=== PATIENT | female | born 1970 | race African-American/Black ===

== ENCOUNTER 2019-05-22 14:04 | Emergency (ER) | payer OTHER ==
[2019-05-22 14:27] VITALS: BP 135/85; PULSE 77; RESP 16; TEMP 98.3
--- NOTE | 2019-05-22 15:14 | ED ---
Skin/Abscess/FB HPI - General Chief complaint: Skin/Abscess/Foreign Body Stated complaint: lightheaded Time Seen by Provider: 05/22/19 14:28 Source: patient, RN notes reviewed, old records reviewed Mode of arrival: ambulatory Limitations: no limitations - History of Present Illness Initial comments: This patient's a 48-year-old female who presents emergency department today for evaluation for discharge from her right breast. She reports it's been of dark brown bloody tinged discharge. Patient states also felt palpable mass within her breast. Patient states that she's noticed since the past few days. Patient states that she had a mammogram last year she had no severe changes. Patient states that she is scheduled in one or soon. Patient reports no other significant symptoms at this time. - Related Data Home Medications Medication Instructions Recorded Confirmed Escitalopram [Lexapro] 20 mg PO DAILY 04/13/14 08/21/15 Gabapentin 100 mg PO BID 04/13/14 08/21/15 oxyCODONE-APAP 7.5-325MG [Percocet 1 tab PO BID 04/13/14 08/21/15 7.5-325 mg] DULoxetine HCL [Cymbalta] 60 mg PO DAILY 08/21/15 08/21/15 Propranolol [Inderal] 20 mg PO BID 08/21/15 08/21/15 Previous Rx's Medication Instructions Recorded Albuterol Sulfate [Proair Hfa] 1 - 2 puff INHALATION Q6HR PRN #1 08/21/15 inhaler Amoxic-Pot Clav 875-125Mg 1 each PO Q12HR #20 tablet 08/21/15 [Augmentin Xr 875-125] guaiFENesin-DM 600/30MG [Mucinex 1 each PO Q12HR PRN #20 tab.er.12h 08/21/15 Dm] Allergies Allergy/AdvReac Type Severity Reaction Status Date / Time No Known Allergies Allergy Verified 05/22/19 14:27 Review of Systems ROS Statement: Those systems with pertinent positive or pertinent negative responses have been documented in the HPI. ROS Other: All systems not noted in ROS Statement are negative. Past Medical History Past Medical History: Neurologic Disorder History of Any Multi-Drug Resistant Organisms: None Reported Past Surgical History: Cholecystectomy, Hernia Repair, Hysterectomy, Tubal Ligation Additional Past Surgical History / Comment(s): carpal tunnel, brain, shoulder Past Psychological History: Anxiety, Depression Smoking Status: Never smoker Past Alcohol Use History: Occasional Past Drug Use History: None Reported General Exam - General Exam Comments Initial Comments: 40-year-old female. Alert and oriented. No distress. Limitations: no limitations General appearance: alert, in no apparent distress Head exam: Present: atraumatic, normocephalic, normal inspection Eye exam: Present: normal appearance, PERRL, EOMI. Absent: scleral icterus, conjunctival injection, periorbital swelling ENT exam: Present: normal exam, mucous membranes moist Neck exam: Present: normal inspection. Absent: tenderness, meningismus, lymphadenopathy Respiratory exam: Present: normal lung sounds bilaterally. Absent: respiratory distress, wheezes, rales, rhonchi, stridor Cardiovascular Exam: Present: regular rate, normal rhythm, normal heart sounds, other (Patient is a mobile 2 cm circular-like mass over the 2 o'clock position of the left breast. Patient with the Patient has some bloody discharge from her nipple.). Absent: systolic murmur, diastolic murmur, rubs, gallop, clicks GI/Abdominal exam: Present: soft, normal bowel sounds. Absent: distended, tenderness, guarding, rebound, rigid Extremities exam: Present: normal inspection Back exam: Present: normal inspection Neurological exam: Present: alert, oriented X3, CN II-XII intact Course Vital Signs 05/22/19 14:25 Temperature 98.3 F Pulse Rate 77 Respiratory 16 Rate Blood Pressure 135/85 O2 Sat by Pulse 96 Oximetry Medical Decision Making - Medical Decision Making Patient's a 40-year-old female presents today with concerns for a mobile mass over her left breast and some bloody discharge. On exam she does have a 2 cm mobile mass at the 2 o'clock position. Patient has been advised that she needs to follow-up promptly with her [employer] her breast surgeon. I discussed St. biopsied. Patient's breast does have some discharge and appears dark brown or possibly blood tinged on palpation. I discussed that if this were to get worse or have any other signs of infection including redness swelling to return for reevaluation. Discussed from PCP and breast surgeon follow-up. Disposition Clinical Impression: Discharge from breast Disposition: HOME SELF-CARE Condition: Good Instructions (If sedation given, give patient instructions): Cyst (ED) Additional Instructions: Patient is a prompt follow-up with breast surgeon and primary care physician. she needs to schedule for mammography or ultrasound. Is patient prescribed a controlled substance at d/c from ED?: No Referrals: Mark Juarez MD [Primary Care Provider] - 1-2 days Eboni Flores MD [STAFF PHYSICIAN] - 1-2 days Time of Disposition: 15:14
== END 2019-05-22 15:31 | disposition home or self-care (01) ==
LOC: EC 14:04
DX: N64.52 Nipple discharge (principal); R42 Dizziness and giddiness; F41.9 Anxiety disorder, unspecified; F32.9 Major depressive disorder, single episode, unspecified; Z79.891 Long term (current) use of opiate analgesic; Z79.899 Other long term (current) drug therapy
CPT/HCPCS: 87070; 87205; 99284

== ENCOUNTER → 2019-05-28 | Outpatient (CLI) | payer OTHER ==
[2019-05-28 14:40] LABS: Basophils % (A) 0 %; Eosinophils # (A) 0.3 k/uL (0-0.7); Eosinophils % (A) 4 %; HCT 42.3 % (34.0-46.0); HGB 13.1 gm/dL (11.4-16.0); Lymphocytes # (A) 1.9 k/uL (1.0-4.8); Lymphocytes % (A) 26 %; MCH 29.5 pg (25.0-35.0); MCHC 30.9 g/dL (31.0-37.0); MCV 95.5 fL (80.0-100.0); Mean Platelet Volume 7.3; Monocytes # (A) 0.5 k/uL (0-1.0); Monocytes % (A) 7 %; Neutrophils # (A) 4.5 k/uL (1.3-7.7); Neutrophils % (A) 61 %; Platelet Count 309 k/uL (150-450); RBC 4.43 m/uL (3.80-5.40); RDW 13.4 % (11.5-15.5); WBC 7.3 k/uL (3.8-10.6)
== END | disposition home or self-care (01) ==
LOC: LABWHC1 14:05
PROVIDERS: ATTEND Internal Medicine
DX: N64.52 Nipple discharge (principal)
CPT/HCPCS: 36415; 82670; 83001; 83002; 84146; 85025

== ENCOUNTER → 2019-06-24 | Outpatient (CLI) | payer OTHER ==
--- NOTE | 2019-06-25 09:26 | USB ---
Reason for exam: clinical finding. Indicated problem(s): non-bloody discharge in both breasts. Physical Findings: Nurse Summary: 1.5cm nodule in the right breast at 3 o'clock, a 1.5cm nodule in the left breast at 2 o'clock and a 1cm nodule in the left breast at 3 o'clock (nurse TM). US Breast BILAT Right complete breast ultrasound includes all four quadrants, the retroareolar region and axilla. Finding demonstrates a 0.3 x 0.2 x 0.3cm lesion too small to characterize at 1 o'clock and a 0.4 x 0.3 x 0.4cm mixed lesion at 11 o'clock, some posterior enhancement. Left complete breast ultrasound includes all four quadrants, the retroareolar region and axilla. Finding demonstrates a 0.9 x 0.5 x 0.7cm mixed lesion at 1 o'clock, suspicious, possible papilloma, biopsy recommended, a 0.9 x 0.3 x 0.9cm mixed lesion at 2 o'clock, intraductal filling defect, suspicious, biopsy recommended, possible papilloma also, a 0.5 x 0.3 x 0.6cm mixed lesion at 11 o'clock and ductal ectasia at the nipple. These results were verbally communicated with the patient and result sheet given to the patient on 06/24/19. ASSESSMENT: Suspicious, BI-RAD 4 RECOMMENDATION: Ultrasound core biopsy of the left breast. Called Dr. Juarze with mammographic findings and has scheduled an appointment for the patient for 07/16/19 at 12:[address] Flores. Biopsy scheduled for 07/19/19 at 12:20. PRELIMINARY REPORT CALLED AND FAXED TO DR. FLORES ON 06/24/19.
--- NOTE | 2019-07-06 09:01 | MM ---
Reason for exam: clinical finding. Last mammogram was performed 5 years and 7 months ago. Physical Findings: Nurse Summary: 1.5cm nodule in the right breast at 3 o'clock, a 1.0cm nodule in the left breast at 3 o'clock and a 1.5cm nodule in the left breast at 2 o'clock (nurse TM). MG 3D Diag Mammo W/Cad WING Bilateral CC, MLO, and ML view(s) were taken. Prior study comparison: November 22, 2013, mammogram, performed at [facility]. December 02, 2011, mammogram, performed at [facility]. November 08, 2008, right breast mammogram dig work up. October 18, 2008, bilateral digital screening mammogram. The breast tissue is heterogeneously dense. This may lower the sensitivity of mammography. Medial palpable marker on the right. Two lateral palpable markers on the left. Lateral right breast nodularity. Medial left breat nodularity. These results were verbally communicated with the patient on 07/05/19. ASSESSMENT: Incomplete: need additional imaging evaluation, BI-RAD 0 RECOMMENDATION: Ultrasound of both breasts.
== END | disposition home or self-care (01) ==
LOC: RADMAMWWP 12:56
PROVIDERS: ATTEND Internal Medicine
DX: N64.52 Nipple discharge (principal); N64.89 Other specified disorders of breast
CPT/HCPCS: 77066; 76641; G0279; 77062

== ENCOUNTER → 2019-07-16 | Outpatient (CLI) | payer OTHER ==
[2019-07-16 12:26] VITALS: BP 139/91; PULSE 71; RESP 18; TEMP 98.4; BMI 43.9
--- NOTE | 2019-07-16 12:52 | P.GSHP ---
History of Present Illness H&P Date: 07/16/19 Chief Complaint: breast pain, nodularity of the left breast, bloody nipple d ischarge The patient is a 48 year old black female who presents with a complaint of bilateral breast pain which is worse before she should be having her periods. She has had a hysterectomy her ovaries were not removed and so she is uncertain as to when her periods would actually be. The last time the patient experienced this pain she also noticed some nodularity in her left breast. The nodularity was in the upper outer quadrant area. It has remained persistent. Additionally she noticed some left nipple bloody discharge. No bloody discharge from the right side although she has had some nipple discharge on this side as well. The patient had a bilateral mammogram performed on 9518. This revealed heterogeneously dense tissue. A marker was present on the right breast. There is some palpable changes as well as a marker on the left breast for some palpable changes. Ultrasound of both breasts was recommended. Ultrasound was performed on 9518. Right breast ultrasound revealed a 0.4 cm Lesion at 11:00. The left breast ultrasound revealed a 0.9 cm mixed lesion at 1:00 suspicious possible papilloma, biopsy was recommended. Additionally 0.9 cm mixed lesion at 2:00 with an intraductal filling defect considered suspicious and biopsy recommended also possible papilloma. A 0.6 cm mixed lesion at 11:00 and duct ectasia at the nipple. The findings were considered suspicious and ultrasound- guided biopsy of 2 areas of the left breast recommended. She has not had any infection or trauma to the breast. The patient does get pain cyclically in her breast approximately once a month intubation. The pain is diffuse in the breast and the breast feel heavy. It does not radiate anyplace. The discomfort is described as diffuse tenderness. It is worse with touch. It gets better on its all after she believes she would've had her period. The patient does drink pop intermittently. She does not smoke cigarettes. She is exposed to secondhand smoke. She does eat chocolate regularly. Family history: maternal grandmother: throat cancer Hormonal history: Menarche:9 1 [place], first born at 14, breast fed:no menopause: hysterectomy at 32, fibroid tumors BCP: 5 years hormones: none Surgical history: 1. Hysterectomy 2. ventral hernia- after it was repaired and became infected and she needed to have a wound VAC at this site 3. Cholecystectomy 4. Rotator cuff right shoulder 5. Carpal tunnel right wrist 6. Budd-Chiari malformation/brain surgery Medical History: 1. Headaches/Budd-Chiari malformation 2. Numbness on the right side 3. Neck and shoulder pain Social history: Smoke: Negative Alcohol: Occasional Drugs: Marijuana every day for shoulder pain and to help sleep - Constitutional Constitutional: Denies chills, Denies fever - EENT Comment: blurred vision at times, Chiari malformation patient had surgery for this Ears: deny: decreased hearing, tinnitus Ears, nose, mouth and throat: Reports headache - Cardiovascular Cardiovascular: Reports high blood pressure, Reports shortness of breath, Denies chest pain - Respiratory Comment: bronchitis Respiratory: Reports cough - Gastrointestinal Gastrointestinal: Denies abdominal pain, Denies diarrhea, Denies nausea, Denies vomiting - Genitourinary (Female) Genitourinary: Denies dysuria, Denies hematuria - Menstruation Menstruation: Reports post hysterectomy - Musculoskeletal Comment: arthritis - Integumentary Integumentary: Denies pruritus, Denies rash - Neurological Neurological: Reports numbness, Reports weakness - Psychiatric Psychiatric: Denies anxiety, Denies depression - Endocrine Endocrine: Reports weight change, Denies fatigue - Hematologic/Lymphatic Comment: none - Allergic/Immunologic Allergic/Immunologic: Reports seasonal allergies Past Medical History Past Medical History: Hypertension, Neurologic Disorder Additional Past Medical History / Comment(s): migaines, History of Any Multi-Drug Resistant Organisms: None Reported Past Surgical History: Cholecystectomy, Hernia Repair, Hysterectomy, Tubal Ligation Additional Past Surgical History / Comment(s): Right carpal tunnel, brain, Right shoulder (torn rotator cuff) Past Anesthesia/Blood Transfusion Reactions: No Reported Reaction Past Psychological History: Anxiety, Depression Smoking Status: Former smoker Past Alcohol Use History: Rare Past Drug Use History: Marijuana Additional Drug Use History / Comment(s): daily marijuana smoker Medications and Allergies Home Medications Medication Instructions Recorded Confirmed Type Gabapentin 300 mg PO DAILY 04/13/14 07/07/19 History oxyCODONE-APAP 7.5-325MG [Percocet 1 tab PO BID 04/13/14 07/07/19 History 7.5-325 mg] Albuterol Sulfate [Proair Hfa] 1 - 2 puff INHALATION Q6HR PRN #1 08/21/15 07/07/19 Rx inhaler Propranolol [Inderal] 20 mg PO BID 08/21/15 07/07/19 History Furosemide [Lasix] 20 mg PO DAILY 07/16/19 07/16/19 History Oxybutynin Chloride [Ditropan] 5 mg PO BID 07/16/19 07/16/19 History buPROPion [Wellbutrin] 75 mg PO BID 07/16/19 07/16/19 History tiZANidine [Zanaflex] 4 mg PO Q8HR PRN 07/16/19 07/16/19 History Allergies Allergy/AdvReac Type Severity Reaction Status Date / Time No Known Allergies Allergy Verified 07/16/19 12:23 Surgical - Exam BMI 43.9 - General obese - Eyes normal ocular movement - ENT no hearing loss, no congestion - Neck no masses, trachea midline - Respiratory normal respiratory effort, clear to auscultation - Cardiovascular Rhythm: regular Heart Sounds: normal: S1, S2 - Abdomen Abdomen: soft - Integumentary normal turgor - Neurologic no disoriented, no combative - Musculoskeletal pain with ambulation in her knees - Psychiatric oriented to time, oriented to person, oriented to place, speech is normal, memory intact Breast examination: Right breast: Multiple positional exam fibrocystic changes no discrete dominant mass or nodule of concern Right axilla: No adenopathy of concern Left breast: Multiple position once an fibrocystic changes increased tenderness to palpation left breast upper outer quadrant area with fibrocystic changes and nodularity the patient has a left nipple discharge which is coming out from the upper outer quadrant of the nipple on the left at approximately 1:00 this was guaiac tested and noted to be guaiac positive Left axilla: No adenopathy of concern Results Mammogram and ultrasound results reviewed Assessment and Plan Assessment: Impression: 1. Mastodynia 2. Bloody nipple discharge on the left; most likely related to intraductal papilloma 3. Fibrocystic breast changes 4. Nodularity in the upper quadrant on the left most likely fibrocystic 5. Family history of cancer 6. Personal history of Budd-Chiari syndrome 7. Chronic headaches 8. Right-sided numbness and weakness Plan: 1. Ultrasound-guided core biopsy of 2 spots in the left breast 2. Duct exploration for bloody nipple discharge after ultrasound-guided core biopsy 3. Medical management of medical conditions 4. Follow-up after ultrasound-guided core biopsy I discussed with the patient that secondary to the bloody nipple discharge and recommended duct exploration. Depending on what is found at the ultrasound core biopsy made to determine the type of resection we would do. The first step will be an ultrasound core biopsy of 2 sites in the left breast. We talked about the possibility of this being an intraductal papilloma. Additionally I would recommend that the patient decrease her caffeine intake exposure to smoke and chocolate consumption. All of these things can contribute to fibrocystic changes and the pain the patient is been having in her breast. Otherwise the breast pain is most likely hormonally related and cyclical in nature secondary to the fact that she still has her ovaries. A book on the causes of breast pain is being given to the patient. CC: Dr. Juarez
== END ==
LOC: WWCWWP 12:06
PROVIDERS: ATTEND Surgery
DX: Z53.9 Procedure and treatment not carried out, unspecified reason (principal)

== ENCOUNTER → 2019-07-19 | Day surgery (SDC) | payer OTHER ==
[2019-07-19 11:18] VITALS: RESP 16
[2019-07-19 13:28] VITALS: BP 142/90; PULSE 69; TEMP 98.1
--- NOTE | 2019-07-19 15:16 | USB ---
EXAMINATION TYPE: US biopsy breast VAD LT, US biopsy breast add'l VAD LT, MG diagnostic mammo LT wo CAD DATE OF EXAM: 07/19/2019 CLINICAL HISTORY: R92.8 ABN MAMMO. TECHNIQUE: Ultrasound guided core biopsy of left breast. COMPARISON: Left breast ultrasound dated 06/24/2019 FINDINGS: The procedure of ultrasound guided core biopsy was explained to the patient. Benefits, alternatives, and risks were discussed. An informed consent was then obtained. Preprocedural timeout was performed. Site A (1:00): The patient was placed in supine positioning for imaging and for the procedure. The overlying skin was prepped and draped in usual sterile fashion. 10 cc of 1% lidocaine was used as anesthetic into the skin and subcutaneous tissue up to area of concern in the left breast. Under ultrasound guidance, a 12-gauge vacuum assisted biopsy gun device was used to obtain 4 core samples. Following this, a ribbon-shaped biopsy marker was left at the site of biopsy. Site B (2:00):The patient was placed in supine positioning for imaging and for the procedure. The overlying skin was prepped and draped in usual sterile fashion. 10 cc of 1% lidocaine was used as anesthetic into the skin and subcutaneous tissue up to area of concern in the left breast. Under ultrasound guidance, a 12-gauge vacuum assisted biopsy gun device was used to obtain 3 core samples. Following this, a coil-shaped biopsy marker was left at the site of biopsy. Postprocedure mammogram demonstrates appropriate biopsy marker placement. The patient tolerated the procedure well without any immediate complication. The patient was kept in the radiology department for short stay after the procedure and then discharged home in stable condition. IMPRESSION: Successful, uncomplicated two site ultrasound guided core biopsy of left breast masses at the 1:00 and 2:00 positions, full pathology results to follow. Of note there is an additional mass at the 2:00 position appearing intraductal, possibly papilloma that is similar in morphology to the biopsied mass at the 1:00 position. Recommendation for the additional 2:00 mass that was not biopsied will be made based on the biopsy results of the 1:00 mass in the left breast. This was discussed with the patient. Pathology Results: Benign A. LEFT BREAST, 1:00, ULTRASOUND GUIDED CORE BIOPSIES: Mammary duct ectasia and fibrocystic change with fragments of necrotic inspissated material. Negative for atypia. B. LEFT BREAST, 2:00, ULTRASOUND GUIDED CORE BIOPSIES: Fibrocystic change, mammary duct ectasia. Recommendation Surgical consult of the left breast. Repeat procedure. Possible excision versus rebiopsy at 1 o'clock. Sonographic features appear as a papilloma. 2:00 site is concordant and benign. MTDD
== END ==
LOC: RADUSWWP 10:57
PROVIDERS: ATTEND Surgery
DX: N60.12 Diffuse cystic mastopathy of left breast (principal); N60.42 Mammary duct ectasia of left breast
CPT/HCPCS: 88305; 77065; 19083; 19084; A4648; J2001

== ENCOUNTER → 2019-07-23 | Outpatient (CLI) | payer OTHER ==
[2019-07-23 16:06] VITALS: BP 139/92; PULSE 77; RESP 18; TEMP 97.9; BMI 43.5
--- NOTE | 2019-07-23 16:44 | P.PN ---
Subjective Progress Note Date: 07/23/19 The patient is a 48 year old black female who presents with a complaint of bilateral breast pain which is worse before she should be having her periods. She has had a hysterectomy her ovaries were not removed and so she is uncertain as to when her periods would actually be. The last time the patient experienced this pain she also noticed some nodularity in her left breast. The nodularity was in the upper outer quadrant area. It has remained persistent. Additionally she noticed some left nipple bloody discharge. No bloody discharge from the right side although she has had some nipple discharge on this side as well. The patient had a bilateral mammogram performed on 9518. This revealed het erogeneously dense tissue. A marker was present on the right breast. There is some palpable changes as well as a marker on the left breast for some palpable changes. Ultrasound of both breasts was recommended. Ultrasound was performed on 9518. Right breast ultrasound revealed a 0.4 cm Lesion at 11:00. The left breast ultrasound revealed a 0.9 cm mixed lesion at 1:00 suspicious possible pap illoma, biopsy was recommended. Additionally 0.9 cm mixed lesion at 2:00 with an intraductal filling defect considered suspicious and biopsy recommended also possible papilloma. A 0.6 cm mixed lesion at 11:00 and duct ectasia at the nipple. The findings were considered suspicious and ultrasound-guided biopsy of 2 areas of the left breast recommended. She has not had any infection or trauma to the breast. The patient does get pain cyclically in her breast approximately once a month intubation. The pain is diffuse in the breast and the breast feel heavy. It does not radiate anyplace. The discomfort is described as diffuse tenderness. It is worse with touch. It gets better on its all after she believes she would've had her period. The patient does drink pop intermittently. She does not smoke cigarettes. She is exposed to secondhand smoke. She does eat chocolate regularly. Matt underwent ultrasound-guided core biopsy of 2 areas of concern in the left breast and [id number]. She tolerated the biopsies with no difficulty. Both biopsy results were negative for atypia and revealed fibrocystic change. Her radiograph was reviewed with Dr. Simmons and it was felt that secondary to the fact that we were doing a duct exploration the both of these areas should be localized by ultrasound guidance and removed at the time of the duct exploration. External rotation is being done first bloody nipple discharge. Family history: maternal grandmother: throat cancer Hormonal history: Menarche:9 1 miscarrage, first born at 14, breast fed:no menopause: hysterectomy at 32, fibroid tumors BCP: 5 years hormones: none Surgical history: 1. Hysterectomy 2. ventral hernia- after it was repaired and became infected and she needed to have a wound VAC at this site 3. Cholecystectomy 4. Rotator cuff right shoulder 5. Carpal tunnel right wrist 6. Budd-Chiari malformation/brain surgery Medical History: 1. Headaches/Budd-Chiari malformation 2. Numbness on the right side 3. Neck and shoulder pain Social history: Smoke: Negative Alcohol: Occasional Drugs: Marijuana every day for shoulder pain and to help sleep - Constitutional Constitutional: Denies chills, Denies fever - EENT Comment: blurred vision at times, Chiari malformation patient had surgery for this Ears: deny: decreased hearing, tinnitus Ears, nose, mouth and throat: Reports headache - Cardiovascular Cardiovascular: Reports high blood pressure, Reports shortness of breath, Denies chest pain - Respiratory Comment: bronchitis Respiratory: Reports cough - Gastrointestinal Gastrointestinal: Denies abdominal pain, Denies diarrhea, Denies nausea, Denies vomiting - Genitourinary (Female) Genitourinary: Denies dysuria, Denies hematuria - Menstruation Menstruation: Reports post hysterectomy - Musculoskeletal Comment: arthritis - Integumentary Integumentary: Denies pruritus, Denies rash - Neurological Neurological: Reports numbness, Reports weakness - Psychiatric Psychiatric: Denies anxiety, Denies depression - Endocrine Endocrine: Reports weight change, Denies fatigue - Hematologic/Lymphatic Comment: none - Allergic/Immunologic Allergic/Immunologic: Reports seasonal allergies Past Medical History Past Medical History: Hypertension, Neurologic Disorder Additional Past Medical History / Comment(s): migaines, History of Any Multi-Drug Resistant Organisms: None Reported Past Surgical History: Cholecystectomy, Hernia Repair, Hysterectomy, Tubal Ligat ion Additional Past Surgical History / Comment(s): Right carpal tunnel, brain, Right shoulder (torn rotator cuff) Past Anesthesia/Blood Transfusion Reactions: No Reported Reaction Past Psychological History: Anxiety, Depression Smoking Status: Former smoker Past Alcohol Use History: Rare Past Drug Use History: Marijuana Additional Drug Use History / Comment(s): daily marijuana smoker Objective - Vital Signs Vital signs: Vital Signs Temp 97.9 F 07/23/19 16:02 Pulse 77 07/23/19 16:02 Resp 18 07/23/19 16:02 BP 139/92 07/23/19 16:02 Pulse Ox 97 07/23/19 16:02 Intake & Output 07/22/19 07/23/19 07/23/19 18:59 06:59 18:59 Weight 122.47 kg - Exam BMI 43.6 - Constitutional General appearance: Present: obese - EENT Eyes: Present: EOMI ENT: Present: hearing grossly normal - Neck Neck: Present: normal ROM - Respiratory Respiratory: bilateral: CTA - Cardiovascular Rhythm: regular Heart sounds: normal: S1, S2 - Gastrointestinal General gastrointestinal: Present: soft - Integumentary Integumentary: Present: normal turgor - Musculoskeletal Musculoskeletal: Present: gait normal - Psychiatric Psychiatric: Present: A&O x's 3, appropriate affect, intact judgment & insight - Additional findings Additional findings: Breasts: Biopsy site mild ecchymosis Patient with persistent 12:00 bloody nipple discharge Small hematoma at biopsy site Assessment and Plan Assessment: Impression: 1. Mastodynia somewhat improved 2. Bloody nipple discharge on the left 3. Fibrocystic breast changes 4. Status post core biopsy 2 sites of concern in the left breast both were benign 5. Nodularity upper quadrant on the left most likely fibrocystic 6. Personal history of Budd-Chiari syndrome 7. Chronic headaches 8. Right-sided numbness and weakness Plan: 1. Ultrasound-guided localization of 2 areas that were biopsied in the left breast with resection at time of duct exploration 2. Medical management of medical conditions 3. medical clearance form DR. Juarez 4. Patient is decreasing caffeine exposure as well as exposure to cigarette smoke. Risk and benefits of surgery are discussed with the patient she understands and wishes to proceed. risks include bleeding infection reaction to the anesthetic and possible failure to remove the area noted radiographically. CC: Dr. Juarez
== END | disposition home or self-care (01) ==
LOC: WWCWWP 15:49
PROVIDERS: ATTEND Surgery
DX: Z53.9 Procedure and treatment not carried out, unspecified reason (principal)

== ENCOUNTER → 2019-08-10 | Outpatient (CLI) | payer OTHER ==
[2019-08-10 15:26] LABS: Basophils # (A) 0.1 k/uL (0-0.2); Basophils % (A) 1 %; Eosinophils # (A) 0.3 k/uL (0-0.7); Eosinophils % (A) 3 %; HCT 40.2 % (34.0-46.0); Lymphocytes # (A) 2.3 k/uL (1.0-4.8); Lymphocytes % (A) 23 %; MCH 30.7 pg (25.0-35.0); MCHC 32.3 g/dL (31.0-37.0); MCV 95.3 fL (80.0-100.0); Mean Platelet Volume 6.6; Monocytes # (A) 0.7 k/uL (0-1.0); Monocytes % (A) 7 %; Neutrophils # (A) 6.5 k/uL (1.3-7.7); Neutrophils % (A) 65 %; Platelet Count 293 k/uL (150-450); RBC 4.22 m/uL (3.80-5.40); RDW 12.9 % (11.5-15.5)
[2019-08-10 15:37] LABS: ALT 22 U/L (9-52); AST 22 U/L (14-36); African American GFR (CKD) >90 (>60 ml/min/1.73 sqM); Albumin 3.9 g/dL (3.5-5.0); Alkaline Phosphatase 91 U/L (38-126); Anion Gap 5 mmol/L; Blood Urea Nitrogen 11 mg/dL (7-17); Calcium 9.3 mg/dL (8.4-10.2); Carbon Dioxide 30 mmol/L (22-30); Chloride 105 mmol/L (98-107); Glucose 87 mg/dL (74-99); Sodium 140 mmol/L (137-145); Total Bilirubin 1.4 mg/dL (0.2-1.3); Total Protein 7.4 g/dL (6.3-8.2)
[2019-08-10 15:47] LABS: INR 0.9 (<1.2)
[2019-08-10 15:54] LABS: T4, Free (Free Thyroxine) 0.98 ng/dL (0.78-2.19)
== END | disposition home or self-care (01) ==
LOC: LABPAT 14:22
PROVIDERS: ATTEND Internal Medicine
DX: Z01.812 Encounter for preprocedural laboratory examination (principal); Z01.818 Encounter for other preprocedural examination; R51 Headache; R94.31 Abnormal electrocardiogram [ECG] [EKG]
CPT/HCPCS: 80053; 84439; 84443; 84481; 85025; 85610; 93005

== ENCOUNTER → 2019-09-02 | Outpatient (CLI) | payer OTHER ==
[2019-09-02 15:58] VITALS: BP 128/93; PULSE 118; RESP 18; TEMP 98.4; BMI 43.5
--- NOTE | 2019-09-02 16:52 | P.PN ---
Subjective The patient is a 48 year old black female who presents with a complaint of bilateral breast pain which is worse before she should be having her periods. She has had a hysterectomy her ovaries were not removed and so she is uncertain as to when her periods would actually be. The last time the patient experienced this pain she also noticed some nodularity in her left breast. The nodularity was in the upper outer quadrant area. It has remained persistent. Additionally she noticed some left nipple bloody discharge. No bloody discharge from the right side although she has had some nipple discharge on this side as well. The patient had a bilateral mammogram performed on 9518. This revealed heterogeneously dense tissue. A marker was present on the right breast. There is some palpable changes as well as a marker on the left breast for some palpable changes. Ultrasound of both breasts was recommended. Ultrasound was performed on 9518. Right breast ultrasound revealed a 0.4 cm Lesion at 11:00. The left breast ultrasound revealed a 0.9 cm mixed lesion at 1:00 suspicious possible papilloma, biopsy was recommended. Additionally 0.9 cm mixed lesion at 2:00 with an intraductal filling defect considered suspicious and biopsy recommended also possible papilloma. A 0.6 cm mixed lesion at 11:00 and duct ectasia at the nipple. The findings were considered suspicious and ultrasound- guided biopsy of 2 areas of the left breast recommended. She has not had any infection or trauma to the breast. She underwent ultrasound-guided core biopsy of 2 sites in the left breast on . The first site at 1 oclock was felt to be discordant and needle local and excisional biopsy versus repeat ultrasound core biopsy was recommended. The second site at 2:00 is felt to be concordant and benign. The patient continues to have nipple discharge which was tested before and is guaiac positive. The patient states that the discomfort in her breast has improved. The patient does get pain cyclically in her breast approximately once a month . The pain is diffuse in the breast and the breast feel heavy. It does not radiate anyplace. The discomfort is described as diffuse tenderness. It is worse with touch. It gets better on its own after; she believes she would've had her period. The patient does drink pop intermittently. She does not smoke cigarettes. She is exposed to secondhand smoke. She does eat chocolate regularly. The patient has decreased her intake of pop. She continues to be exposed to secondhand smoke. She has decreased her chocolate intake. Family history: maternal grandmother: throat cancer Hormonal history: Menarche:9 1 miscarrage, first born at 14, breast fed:no menopause: hysterectomy at 32, fibroid tumors BCP: 5 years hormones: none Surgical history: 1. Hysterectomy 2. ventral hernia- after it was repaired and became infected and she needed to have a wound VAC at this site 3. Cholecystectomy 4. Rotator cuff right shoulder 5. Carpal tunnel right wrist 6. Budd-Chiari malformation/brain surgery Medical History: 1. Headaches/Budd-Chiari malformation 2. Numbness on the right side 3. Neck and shoulder pain Social history: Smoke: Negative Alcohol: Occasional Drugs: Marijuana every day for shoulder pain and to help sleep - Constitutional Constitutional: Denies chills, Denies fever - EENT Comment: blurred vision at times, Chiari malformation patient had surgery for this Ears: deny: decreased hearing, tinnitus Ears, nose, mouth and throat: Reports headache - Cardiovascular Cardiovascular: Reports high blood pressure, Reports shortness of breath, Denies chest pain - Respiratory Comment: bronchitis Respiratory: Reports cough - Gastrointestinal Gastrointestinal: Denies abdominal pain, Denies diarrhea, Denies nausea, Denies vomiting - Genitourinary (Female) Genitourinary: Denies dysuria, Denies hematuria - Menstruation Menstruation: Reports post hysterectomy - Musculoskeletal Comment: arthritis - Integumentary Integumentary: Denies pruritus, Denies rash - Neurological Neurological: Reports numbness, Reports weakness - Psychiatric Psychiatric: Denies anxiety, Denies depression - Endocrine Endocrine: Reports weight change, Denies fatigue - Hematologic/Lymphatic Comment: none - Allergic/Immunologic Allergic/Immunologic: Reports seasonal allergies Past Medical History Past Medical History: Hypertension, Neurologic Disorder Additional Past Medical History / Comment(s): migaines, History of Any Multi-Drug Resistant Organisms: None Reported Past Surgical History: Cholecystectomy, Hernia Repair, Hysterectomy, Tubal Ligation Additional Past Surgical History / Comment(s): Right carpal tunnel, brain, Right shoulder (torn rotator cuff) Past Anesthesia/Blood Transfusion Reactions: No Reported Reaction Past Psychological History: Anxiety, Depression Smoking Status: Former smoker Past Alcohol Use History: Rare Past Drug Use History: Marijuana Additional Drug Use History / Comment(s): daily marijuana smoker Objective - Vital Signs Vital signs: Vital Signs Temp 98.4 F 09/02/19 15:55 Pulse 118 H 09/02/19 15:55 Resp 18 09/02/19 15:55 BP 128/93 09/02/19 15:55 Pulse Ox 95 09/02/19 15:55 Intake & Output 09/01/19 09/02/19 09/02/19 18:59 06:59 18:59 Weight 122.47 kg - Exam BMI 43.6 - Constitutional General appearance: Present: obese - EENT Eyes: Present: EOMI ENT: Present: hearing grossly normal - Neck Neck: Present: normal ROM - Respiratory Respiratory: bilateral: CTA - Cardiovascular Rhythm: regular Heart sounds: normal: S1, S2 - Gastrointestinal Gastrointestinal Comment(s): no guarding or rebound normal bowel sounds General gastrointestinal: Present: soft - Integumentary Integumentary: Present: normal turgor - Musculoskeletal Musculoskeletal: Present: gait normal - Psychiatric Psychiatric: Present: A&O x's 3, appropriate affect, intact judgment & insight - Additional findings Additional findings: Breast examination: Right breast: Multi-positional exam no dominant mass or notches of concern, fibrocystic changes Right axilla: No adenopathy of concern Left breast: Multi-positional exam fibrocystic changes, palpation at the 1 and 2 o'clock position revealed bloody discharge from the nipple complex Left axilla: No adenopathy of concern Breasts size 40 DD Ptosis grade 3 Assessment and Plan Assessment: Impression: Impression: 1. Mastodynia 2. Bloody nipple discharge on the left, core biopsy of 2 sites revealed fibrocystic changes that at 1:00 was felt to be discordant patient is going to have needle local excision of both of these sites 2. Fibrocystic breast changes 4. Family history of cancer 5. Personal history of Budd-Chiari syndrome 6. Chronic headaches 7. Right-sided numbness and weakness Plan: 1. Ultrasound guided localization of 2 sites of concern in the left breast 2. Duct exploration for bloody nipple discharge as well as removal of ultrasound-guided areas of localization 3. Medical management of medical conditions 4. Medical clearance secondary to Budd-Chiari syndrome, DR. Aviles, Dr. Juarez We have discussed risks and benefits of the surgical procedure. We have also discussed the possibility of bleeding and infection reaction to the anesthetic. The patient wishes to proceed. Time about 30 minutes, > 50% discussion. CC: DR. Juarez
== END ==
LOC: WWCWWP 15:39
PROVIDERS: ATTEND Surgery
DX: Z53.9 Procedure and treatment not carried out, unspecified reason (principal)

== ENCOUNTER 2019-09-07 07:51 | Day surgery (SDC) | payer OTHER ==
[2019-09-06 08:15] VITALS: BMI 43.5
[~2019-09-07 07:51] MED LIST: DEXAMETHASONE SOD PHOSPHATE 10 MG/ML 1 ML VIAL IV ONE; HEPARIN SODIUM,PORCINE 5,000 UNIT/ML 1 ML VIAL SQ ONE; HYDROmorphone 0.5 MG/0.5 ML SYRINGE IVP PRN; LACTATED RINGERS 1,000 ML IV SCH; MIDAZOLAM 2 MG/2 ML VIAL IV PRN; ONDANSETRON 4 MG/2 ML VIAL IVP ONE; SCOPOLAMINE 1.5MG/72HR PATCH TRANSDERM ONE; ceFAZolin 3 GM in SODIUM CHLORIDE 0.9% 100 ML IVPB ONE
[2019-09-07] MEDS ORDERED: LIDOCAINE 1% 20 ML VIAL (10MG/ML) FOR IV START SQ ONE (08:30)
[2019-09-07] MEDS ORDERED: ALPRAZolam 0.5 MG TAB PO ONE (08:36)
[2019-09-07] MEDS ORDERED: LIDOCAINE 1% INJ 10MG/ML (20 ML MDV) SQ ONE ×3 (09:30→11:25)
[2019-09-07] MEDS ORDERED: LIDOCAINE 1% INJ 10MG/ML (20 ML MDV) ONE (10:51)
[2019-09-07] MEDS ORDERED: fentaNYL (PF) 50 MCG/ML 2 ML AMP ONE (10:51)
[2019-09-07] MEDS ORDERED: PROPOFOL 10 MG/ML 20 ML VIAL IV ONE (10:51)
[2019-09-07] MEDS ORDERED: SUCCINYLCHOLINE CHLORIDE VIAL 200 MG/10 ML VIAL IV ONE (10:51)
[2019-09-07] MEDS ORDERED: MIDAZOLAM 2 MG/2 ML VIAL ONE (10:51)
[2019-09-07] MEDS ORDERED: diphenhydrAMINE 50 MG/ML 1 ML VIAL ONE (10:51)
[2019-09-07] MEDS ORDERED: LACTATED RINGERS 1,000 ML IV ONE (12:34)
--- NOTE | 2019-09-07 12:54 | P.OP ---
Date of Procedure: 09/07/19 Preoperative Diagnosis: Bloody nipple discharge left breast, two areas for needle localization of concern radiographically Postoperative Diagnosis: Duct exploration for bloody nipple discharge, three wires placed to localize 2 areas of concern in the left breast Procedure(s) Performed: Left breast duct exploration, excision of radiographic abnormalities left breast, core biopsies discordant Anesthesia: CAROLINE Surgeon: Eboni Flores Estimated Blood Loss (ml): 10 IV fluids (ml): 300 Pathology: other (breast tissue) Condition: stable Disposition: same day Indications for Procedure: Bloody nipple discharge left breast at 8:00, 2 areas of concern for new localization which were discordant on core biopsy Operative Findings: dilated breast ducts Description of Procedure: Following needle localization of 2 areas of concern using a needle was in the left breast the patient was brought to the operating room. Additionally the patient had bloody nipple discharge from the 8 o'clock position of the left nipple complex. The breast was prepped and draped in a sterile fashion. Preoperative IV had a discussion with the patient if she would prefer to be a slight mastopexy using a crescent mastopexy incision versus a lateral incision on the breast. She wished to minimize the scarring and therefore we proceeded with a crescent mastopexy incision. She understood that the nipple areolar complex would be slightly higher than on the contralateral side. Despite this she wished to proceed with this approach. Using a marking pen the area for the crescent was marked out. The superior-the area was 2 cm. The skin was de- epithelialized. The breast was entered at the lateral portion of the crescent. The dissection was performed. The 8 o'clock position of the nipple with a bloody discharge was noted. A dilated duct was identified and this tissue was grasped and dissected free from under the nipple periareolar complex. Dissection was performed laterally to the area of the needles. The 3 needles were identified and the shaft of the needles were brought into the wound. Dissection was performed around these needles. Dissection was carried inferiorly to the pectoralis major muscle. The specimen was removed. The specimen was painted for orientation. It was sent for radiograph and the area of concern was noted to be removed. The cavity was well irrigated after we were sure that hemostasis was attained using the Harmonic and the bovi cautery device. The superior and inferior borders of tissue were mobilized from the chest wall and from the area of the skin. Approximately 32 cm were mobilized superiorly and 32 cm were mobilized inferiorly. This was a total of 64 cm of tissue mobilized. Titanium clips were placed into the defect. The tissues were brought together using a 3-0 Vicryl suture. The superficial tissues were closed using 3-0 Vicryl suture. Satisfied by the skin being closed with a 4-0 Monocryl. Steri-Strips were applied. All instrument and sponge counts were correct at the end of the case. The patient tolerated the procedure in stable condition.
--- NOTE | 2019-09-07 12:57 | P.DS ---
Providers Attending physician: Eboni Flores Primary care physician: Ann Flores Plan - Discharge Summary Discharge Rx Participant: No New Discharge Prescriptions: No Action oxyCODONE-APAP 7.5-325MG [Percocet 7.5-325 mg] 1 tab PO BID Gabapentin 300 mg PO QAM Propranolol [Inderal] 80 mg PO DAILY Albuterol Sulfate [Proair Hfa] 1 - 2 puff INHALATION Q6HR PRN #1 inhaler PRN Reason: Shortness Of Breath Or Wheezing tiZANidine [Zanaflex] 4 mg PO Q8HR PRN PRN Reason: Pain buPROPion [Wellbutrin] 75 mg PO BID Oxybutynin Chloride [Ditropan] 5 mg PO BID Furosemide [Lasix] 20 mg PO QAM Discharge Medication List Gabapentin 300 mg PO QAM 04/13/14 [History] oxyCODONE-APAP 7.5-325MG [Percocet 7.5-325 mg] 1 tab PO BID 04/13/14 [History] Albuterol Sulfate [Proair Hfa] 1 - 2 puff INHALATION Q6HR PRN #1 inhaler 08/21/15 [Rx] Propranolol [Inderal] 80 mg PO DAILY 08/21/15 [History] Furosemide [Lasix] 20 mg PO QAM 07/16/19 [History] Oxybutynin Chloride [Ditropan] 5 mg PO BID 07/16/19 [History] buPROPion [Wellbutrin] 75 mg PO BID 07/16/19 [History] tiZANidine [Zanaflex] 4 mg PO Q8HR PRN 07/16/19 [History] Follow up Appointment(s)/Referral(s): Eboni Flores MD [STAFF PHYSICIAN] - 1 Week Activity/Diet/Wound Care/Special Instructions: do not drive until seen by DR. Milton wear bra at all times may shower after 48 hours Discharge Disposition: HOME SELF-CARE
[2019-09-07 13:12] VITALS: TEMP 97.8
[2019-09-07 13:34] VITALS: RESP 16
[2019-09-07] MEDS ORDERED: oxyCODONE-APAP 7.5-325MG 1 EACH TAB PO ONE (14:00)
[2019-09-07] MEDS ORDERED: LABETALOL 5 MG/ML VIAL MDV IV ONE (14:00)
[2019-09-07 14:16] VITALS: BP 146/94; PULSE 86
--- NOTE | 2019-09-07 14:30 | USB ---
EXAMINATION TYPE: US breast localization LT, MG pre op loc each addl LT, MG pre op needle loc LT, MG surgical specimen LT DATE OF EXAM: 09/07/2019 COMPARISON: Left breast biopsy dated 07/19/2019 and ultrasound of 06/24/2019 CLINICAL HISTORY: R92.8 abnl mammogram. TECHNIQUE: Ultrasound and mammographic guided needle localization with wire placement and surgical ex cision of area of concern in the left breast. FINDINGS: The procedure of needle localization with wire placement and than surgical excision was exp lained to the patient. Benefits, alternatives, and risks were discussed. An informed consent was th en obtained. Preprocedural timeout was performed. Site A (site labeled 1:00 although after postprocedure mammogram this is thought to represent a 2:00 nonbiopsied mass on the ultrasound of 06/24/2019): Ultrasound demonstrated an intraductal filling defec t near the 1-2:00 position. The overlying skin was prepped and draped in usual sterile fashion. 10 cc of 1% lidocaine was used as anesthetic into the skin and subcutaneous tissue up to the level of area of concern. A 7 cm needle was used. It was placed under direct sonographic guidance. At this poin t, wire was placed and the needle was withdrawn. The wire was fixed to patient's skin. Images were marked for surgeon. Site B (coil-shaped biopsy marker): The shortest pathway for procedure was chosen. Shortest pathway was lateral to medial approach. The overlying skin was prepped and draped in usual sterile fashion. 10 cc of 1% lidocaine was used as anesthetic into the skin and subcutaneous tissue up to the level of area of concern. A 7 cm needle was used. It was placed via a lateral to medial approach under mamm ographic guidance. Subsequent 90 degrees mammogram show the needle to be in satisfactory position re lative to the targeted area. At this point, wire was placed and the needle was withdrawn. The wire was fixed to patient's skin. Images were marked for surgeon. Site C (ribbon-shaped biopsy marker): The shortest pathway for procedure was chosen. Shortest pathwa y was lateral to medial approach. The overlying skin was prepped and draped in usual sterile fashion. 10 cc of 1% lidocaine was used as anesthetic into the skin and subcutaneous tissue up to the level of area of concern. A 7 cm needle was used. It was placed via a lateral to medial approach under ma mmographic guidance. Subsequent 90 degrees mammogram show the needle to be in satisfactory position relative to the targeted area. At this point, wire was placed and the needle was withdrawn. The wir e was fixed to patient's skin. Images were marked for surgeon. The patient tolerated the procedure well without any immediate complication. The patient was kept in the radiology department for short stay after the procedure and then taken to surgery for surgical e xcision. Targeted biopsy markers and wires are identified in specimen mammogram. The patient was ke pt in hospital for short stay after the procedure and then discharged home in stable condition. IMPRESSION: Successful, uncomplicated needle localization with wire placement and surgical excision o f intraductal filling defects and targeted biopsy markers in the left breast, full pathology results to follow.
== END 2019-09-07 14:47 | disposition home or self-care (01) ==
LOC: OR 07:51
PROVIDERS: ATTEND Surgery
DX: D24.2 Benign neoplasm of left breast (principal); N60.12 Diffuse cystic mastopathy of left breast; N60.42 Mammary duct ectasia of left breast; R53.1 Weakness; I10 Essential (primary) hypertension; M54.2 Cervicalgia; M25.519 Pain in unspecified shoulder; H53.8 Other visual disturbances; M19.90 Unspecified osteoarthritis, unspecified site; G43.909 Migraine, unspecified, not intractable, without status migrainosus; F41.9 Anxiety disorder, unspecified; F32.9 Major depressive disorder, single episode, unspecified; R06.00 Dyspnea, unspecified; J45.909 Unspecified asthma, uncomplicated; F17.210 Nicotine dependence, cigarettes, uncomplicated; E66.9 Obesity, unspecified; Z68.41 Body mass index [BMI] 40.0-44.9, adult; Z98.890 Other specified postprocedural states; Z86.19 Personal history of other infectious and parasitic diseases; Z90.49 Acquired absence of other specified parts of digestive tract; Z86.69 Personal history of other diseases of the nervous system and sense organs; Z87.728 Personal history of other specified (corrected) congenital malformations of nervous system and sense organs; Z86.79 Personal history of other diseases of the circulatory system; Z98.51 Tubal ligation status; N60.11 Diffuse cystic mastopathy of right breast; Z90.710 Acquired absence of both cervix and uterus; Z79.899 Other long term (current) drug therapy; Z88.5 Allergy status to narcotic agent; Z80.0 Family history of malignant neoplasm of digestive organs; Z82.0 Family history of epilepsy and other diseases of the nervous system; Z82.49 Family history of ischemic heart disease and other diseases of the circulatory system
CPT/HCPCS: 19120; 19125; 88305; 88307; 76098; 19281; 19282; 19285; J2250; J0330; J1200; J1644; J1100; J0690; J2405; J2001; J3010; J2704

== ENCOUNTER → 2019-09-10 | Outpatient (CLI) | payer OTHER ==
[2019-09-10 16:37] VITALS: BP 154/100; PULSE 77; RESP 18; TEMP 97.9
--- NOTE | 2019-09-10 16:45 | P.PN ---
Progress Note - Text Progress Note Date: 09/10/19 The patient underwent a duct exploration on 09-08-19. Her pathology showed an intraductal papilomma. He states that her tongue feels like it has an area of numbness. She is not having any complaints related to her breasts. Physical exam: Lungs: Clear Heart: Regular rate manner Left breast incision clean and dry no evidence of any infection Lateral aspect of tongue on the left does not show any lesions of concern Impression: 1. Left breast intraductal papilloma excised 2. Tongue is some numbness after surgery we going to follow this conservatively Plan: 1. Repeat left breast mammogram in 6 months 2. We'll follow up with patient in 2 weeks to reevaluate her tongue CC: DR. Juarez
== END ==
LOC: WWCWWP 16:00
PROVIDERS: ATTEND Surgery
DX: Z53.9 Procedure and treatment not carried out, unspecified reason (principal)

== ENCOUNTER → 2019-09-27 | Outpatient (CLI) | payer OTHER ==
--- NOTE | 2019-09-27 22:54 | MR ---
EXAMINATION TYPE: MR shoulder RT wo con DATE OF EXAM: 09/27/2019 COMPARISON: NONE HISTORY: Right shoulder pain, primary osteoarthritis, history of mini open rotator cuff repair. TECHNIQUE: Multiplanar, multisequence imaging of the right shoulder is performed without contrast. FINDINGS: Rotator Cuff: Surgically repaired supraspinatus and infraspinatus tendons are intact. Some subscapula ris tendon fibers are seen axial image 9, distal attachment not well visualized. Acromioclavicular Joint: Moderate to severe spurring. Glenohumeral Joint: Severe spurring and large joint effusion. Moderate to severe superior narrowing. Subchondral cystic change involving medial humeral head and osseous glenoid. Labrum: The superior labrum shows abnormal signal, complete tear is thought present. Biceps Tendon: The long head of biceps is in normal location within bicipital groove. Large surroundi ng effusion. Intracapsular portion not well visualized. Bone marrow signal: No focal abnormal marrow signal is appreciated. Other: Large subdeltoid/subacromial joint effusion with geyser sign at level of the AC joint. Large g lenohumeral joint effusion which in extending anteriorly with intra-articular loose bodies are presen t. IMPRESSION: No recurrent rotator cuff tear. Advanced glenohumeral joint arthropathy. Large joint effu galo with intra-articular loose bodies. Large subdeltoid/subacromial fluid collection with geyser sig n.
== END | disposition home or self-care (01) ==
LOC: RADMRIMAIN 06:56
PROVIDERS: ATTEND Orthopaedic Surgery
DX: M19.011 Primary osteoarthritis, right shoulder (principal)

== ENCOUNTER → 2019-11-30 | Outpatient (CLI) | payer OTHER ==
[2019-11-30 13:58] LABS: HCT 41.6 % (34.0-46.0); HGB 13.1 gm/dL (11.4-16.0); MCH 30.1 pg (25.0-35.0); MCHC 31.6 g/dL (31.0-37.0); MCV 95.4 fL (80.0-100.0); Platelet Count 293 k/uL (150-450); RBC 4.36 m/uL (3.80-5.40); RDW 13.1 % (11.5-15.5); WBC 7.4 k/uL (3.8-10.6)
[2019-11-30 14:06] LABS: INR 0.9 (<1.2); Partial Thromboplastin Time 23.4 sec (22.0-30.0); Prothrombin Time 9.9 sec (9.0-12.0)
[2019-11-30 18:44] LABS: African American GFR (CKD) 100.3 (60.0-200.0); Albumin 3.8 g/dL (3.80-4.90); Albumin/Globulin Ratio 1.52 (1.60-3.17); Anion Gap 6.1 mmol/L (4.00-12.00); BUN/Creat Ratio 11.25 Ratio (12.00-20.00); Calcium 8.8 mg/dL (8.7-10.3); Carbon Dioxide 28.9 mmol/L (21.6-31.8); Globulin 2.5 g/dL (1.6-3.3); Non-African American GFR(CKD) 86.6 (60.0-200.0); Potassium 4.3 mmol/L (3.5-5.5); Total Bilirubin 0.8 mg/dL (0.3-1.2); Total Protein 6.3 g/dL (6.2-8.2)
== END | disposition home or self-care (01) ==
LOC: LABWHC1 12:03
PROVIDERS: ATTEND Internal Medicine
DX: Z01.812 Encounter for preprocedural laboratory examination (principal)
CPT/HCPCS: 36415; 80053; 85027; 85610; 85730

== ENCOUNTER → 2022-02-04 | Outpatient (CLI) | payer OTHER ==
--- NOTE | 2022-02-04 12:59 | XR ---
EXAMINATION TYPE: XR chest 2V DATE OF EXAM: 02/04/2022 COMPARISON: NONE HISTORY: Shortness of breath TECHNIQUE: Frontal and lateral views of the chest are obtained. FINDINGS: Scattered senescent parenchymal changes noted. Hyperinflation compatible with COPD. No evidence for infiltrate. No evidence for atelectasis. Heart size is stable. Mediastinal structures are stable and grossly unremarkable. No evidence for hilar prominence. Degenerative changes dorsal spine. IMPRESSION: 1. No evidence for acute pulmonary disease.
[2022-02-04 15:14] LABS: INR 0.9 (<1.2); Partial Thromboplastin Time 22.9 sec (22.0-30.0); Prothrombin Time 9.9 sec (9.0-12.0)
[2022-02-04 18:05] LABS: Basophils # (A) 0.01 X 10*3/uL (0.00-0.10); Basophils % (A) 0.1 %; Eosinophils # (A) 0.26 X 10*3/uL (0.04-0.35); Eosinophils % (A) 3.5 %; HCT 40.5 % (37.2-46.3); HGB 12.5 g/dL (12.0-15.0); Immature Grans, Automated 0.3 %; Lymphocytes # (A) 2.45 X 10*3/uL (0.90-5.00); Lymphocytes % (A) 32.7 %; MCH 29.3 pg (27.0-32.0); MCHC 30.9 g/dL (32.0-37.0); MCV 94.8 fL (80.0-97.0); Mean Platelet Volume 10.4 fL (9.5-12.2); Monocytes # (A) 0.63 X 10*3/uL (0.20-1.00); Monocytes % (A) 8.4 %; NRBC Per 100 WBC 0 /100 WBCS (0.0-0.0); Neutrophils # (A) 4.12 X 10*3/uL (1.80-7.70); Platelet Count 304 X 10*3/uL (140-440); RBC 4.27 X 10*6/uL (4.10-5.20); RDW 13.7 % (11.5-14.5); WBC 7.49 X 10*3/uL (4.50-10.00)
[2022-02-04 19:46] LABS: African American GFR (CKD) 90.9 (60.0-200.0); Albumin 4.1 g/dL (3.8-4.9); Albumin/Globulin Ratio 1.23 (1.60-3.17); Anion Gap 12.5 mmol/L (10.00-18.00); BUN/Creat Ratio 14.34 Ratio (12.00-20.00); Blood Urea Nitrogen 12.3 mg/dL (9.0-27.0); Calcium 9.4 mg/dL (8.7-10.3); Carbon Dioxide 24.5 mmol/L (20.0-27.5); Globulin 3.4 g/dL (1.6-3.3); Non-African American GFR(CKD) 78.4 (60.0-200.0); Potassium 3.7 mmol/L (3.5-5.5); Total Bilirubin 0.5 mg/dL (0.30-1.20); Total Protein 7.5 g/dL (6.2-8.2)
[2022-02-04 21:19] LABS: Appearance,Urine Cloudy (Clear); Bacteria,Urine 2+ /HPF (None Seen); Bilirubin,Urine Negative (Negative); Blood,Urine Negative (Negative); Calcium Oxalate Crystals,Urine Present /LPF (None Seen); Color,Urine Yellow (Yellow); Ketones,Urine Trace mg/dL (Negative); Nitrite,Urine Negative (Negative); Specific Gravity,Urine 1.023 (1.001-1.030); Urobilinogen,Urine 0.2 (0.2,1.0)
== END | disposition home or self-care (01) ==
LOC: LABWHC1 11:58
PROVIDERS: ATTEND Orthopaedic Surgery Sports Medicine
DX: Z01.812 Encounter for preprocedural laboratory examination (principal)
CPT/HCPCS: 36415; 71046; 80053; 81001; 81025; 85025; 85610; 85730; 93005

== ENCOUNTER → 2022-05-10 | Outpatient (CLI) | payer OTHER ==
[2022-05-10 17:58] LABS: African American GFR (CKD) 75.5 (60.0-200.0); Albumin/Globulin Ratio 1.21 (1.60-3.17); Anion Gap 11.4 mmol/L (10.00-18.00); BUN/Creat Ratio 15.5 Ratio (12.00-20.00); Blood Urea Nitrogen 15.5 mg/dL (9.0-27.0); Calcium 9.5 mg/dL (8.7-10.3); Carbon Dioxide 24.6 mmol/L (20.0-27.5); Globulin 3.3 g/dL (1.6-3.3); Non-African American GFR(CKD) 65.2 (60.0-200.0); Potassium 4.1 mmol/L (3.5-5.5); Total Bilirubin 0.6 mg/dL (0.30-1.20); Total Protein 7.3 g/dL (6.2-8.2)
--- NOTE | 2022-05-13 09:26 | MM ---
Reason for Exam: Screening (asymptomatic). Last mammogram was performed 2 year(s) and 10 month(s) ago. Patient History: Menarche at age 9. First Full-Term at age 14. Hysterectomy at age 33. 09/07/2019, Benign Core Biopsy on the left side. Benign Core Biopsy. 09/07/2019, Benign Core Biopsy on the left side. 07/19/2019, Benign Core Biopsy on the left side. 07/19/2019, Benign Core Biopsy on the left side. Risk Values: Araceli 5 year model risk: 1.2%. NCI Lifetime model risk: 10.4%. Prior Study Comparison: 11/22/2013 Screening Mammogram, [place]. 06/24/2019 Bilateral Diagnostic Mammogram, [facility]. 07/19/2019 Left Diagnostic Mammogram, [facility]. Tissue Density: The breast tissue is heterogeneously dense. This may lower the sensitivity of mammography. Findings: Analyzed By CAD. Interval post excisional changes left breast with architectural distortion and surgical clips. Some underlying nodularity appears to have been present on the MLO view at a middle depth. Given the alteration in the appearance of the breast from prior exam, short interval follow-up is recommended. No significant change in the right breast. Overall Assessment: Probably benign, BI-RAD 3 Management: Diagnostic Mammogram of the left breast in 6 months. 1. Six-month follow-up diagnostic left breast mammogram. 2. Patient should continue monthly self breast exams. A clinical breast exam by your physician is recommended on an annual basis. 3. This exam should not preclude additional follow-up of suspicious palpable abnormalities. Electronically signed and approved by: Cesar Nieto M.D. Radiologist
== END | disposition home or self-care (01) ==
LOC: RADMAMWWP 11:05
PROVIDERS: ATTEND Family Medicine
DX: Z12.31 Encounter for screening mammogram for malignant neoplasm of breast (principal)
CPT/HCPCS: 36415; 77063; 77067; 80053

== ENCOUNTER 2022-05-16 07:20 | Day surgery (SDC) | payer OTHER ==
[2022-05-15 08:44] VITALS: BMI 39.5
[~2022-05-16 07:20] MED LIST changes: -DEXAMETHASONE SOD PHOSPHATE 10 MG/ML 1 ML VIAL IV ONE; -HEPARIN SODIUM,PORCINE 5,000 UNIT/ML 1 ML VIAL SQ ONE; -HYDROmorphone 0.5 MG/0.5 ML SYRINGE IVP PRN; -MIDAZOLAM 2 MG/2 ML VIAL IV PRN; -ONDANSETRON 4 MG/2 ML VIAL IVP ONE; -SCOPOLAMINE 1.5MG/72HR PATCH TRANSDERM ONE; -ceFAZolin 3 GM in SODIUM CHLORIDE 0.9% 100 ML IVPB ONE
--- NOTE | 2022-05-16 07:24 | P.GSHP ---
History of Present Illness H&P Date: 05/16/22 CHIEF COMPLAINT: Colon screen HISTORY OF PRESENT ILLNESS: The patient is a 51-year-old female who presents for colon screen. Lower endoscopy was offered for further evaluation and management. PAST MEDICAL HISTORY: Please see list. PAST SURGICAL HISTORY: Please see list. MEDICATIONS: Please see list. ALLERGIES: Please see list. SOCIAL HISTORY: No illicit drug use FAMILY HISTORY: No reports of Crohn disease or ulcerative colitis. REVIEW OF ORGAN SYSTEMS: CONSTITUTIONAL: No reports of fevers or chills. PHYSICAL EXAM: VITAL SIGNS: Stable GENERAL: Well-developed pleasant in no acute distress. HEENT: No scleral icterus. Extraocular movements grossly intact. Moist buccal mucosa. NECK: Supple without lymphadenopathy. CHEST: Unlabored respirations. Equal bilateral excursions. CARDIOVASCULAR: Regular rate and rhythm. Distal 2+ pulses. ABDOMEN: Soft, nontender, nondistended. MUSCULOSKELETAL: No clubbing, cyanosis, or edema. ASSESSMENT: 1. Colon screen. PLAN: 1. Recommend proceeding with a lower endoscopy Past Medical History Past Medical History: Hypertension, Neurologic Disorder Additional Past Medical History / Comment(s): BOBBI ariza CHIARI MALFORMATION HAD SX History of Any Multi-Drug Resistant Organisms: None Reported Past Surgical History: Breast Surgery, Cholecystectomy, Hernia Repair, Hysterectomy, Tubal Ligation Additional Past Surgical History / Comment(s): Right carpal tunnel, brain SX 2006, Right shoulder (torn rotator cuff), LEFT BREAST MILK DUCT REMOVED, Past Anesthesia/Blood Transfusion Reactions: No Reported Reaction Smoking Status: Former smoker - Past Family History Mother Family Medical History: Deep Vein Thrombosis (DVT) Medications and Allergies Home Medications Medication Instructions Recorded Confirmed Type oxyCODONE-APAP 7.5-325MG [Percocet 1 tab PO BID 04/13/14 05/15/22 History 7.5-325 mg] Albuterol Sulfate [Proair Hfa] 1 - 2 puff INHALATION Q6HR PRN #1 08/21/15 05/15/22 Rx inhaler Propranolol [Inderal] 80 mg PO DAILY 08/21/15 05/15/22 History Furosemide [Lasix] 20 mg PO QAM 07/16/19 05/15/22 History Oxybutynin Chloride [Ditropan] 5 mg PO BID 07/16/19 05/15/22 History buPROPion [Wellbutrin] 75 mg PO BID 07/16/19 05/15/22 History tiZANidine [Zanaflex] 4 mg PO Q8HR PRN 07/16/19 05/15/22 History amLODIPine [Norvasc] 5 mg PO DAILY 05/15/22 05/15/22 History Allergies Allergy/AdvReac Type Severity Reaction Status Date / Time No Known Allergies Allergy Verified 05/15/22 08:36
[2022-05-16] MEDS ORDERED: LACTATED RINGERS 1,000 ML IV ONE (07:40)
[2022-05-16 07:50] VITALS: TEMP 97.8
[2022-05-16] MEDS ORDERED: PROPOFOL 10 MG/ML 20 ML VIAL IV ONE (07:56)
[2022-05-16] MEDS ORDERED: LIDOCAINE 2% INJ 20 MG/ML (2 ML VIAL) ONE (07:56)
[2022-05-16] MEDS ORDERED: GLYCOPYRROLATE 0.2 MG/ML 2 ML VIAL ONE (07:56)
[2022-05-16 08:27] VITALS: RESP 16
--- NOTE | 2022-05-16 08:27 | P.PCN ---
Date of Procedure: 05/16/22 Description of Procedure: PREOPERATIVE DIAGNOSIS: Colonoscopy screening. POSTOPERATIVE DIAGNOSIS: Colonoscopy screening. Diverticulosis, scattered. OPERATION: Colonoscopy to the cecum, ileocecal valve and appendiceal orifice. SURGEON: Eliza Sharma MD. ANESTHESIA: MAC. INDICATIONS: The patient is a 51-year-old female who presents for colonoscopy screening. Benefits and risks were described and informed consent was obtained. DESCRIPTION OF PROCEDURE: The patient had undergone Sutab prep. The patient had been brought into the operating room and laid in the left lateral decubitus position. After adequate intravenous sedation, the rectum was examined with 2% lidocaine jelly. No external hemorrhoids were encountered. The rectal tone was within normal limits. No lesions were palpated in the rectal vault. An Olympus colonoscope was advanced until the cecum, ileocecal valve and appendiceal orifice were clearly viewed. The prep was excellent. Scattered diverticulosis was encountered. No colonic polyps were found. No evidence of focal colitis was found. Retroflexion of the scope demonstrated grade 1 internal hemorrhoids without active bleeding or inflammation. The colon was desufflated. The patient had tolerated the procedure well. Withdrawal time was over 6 minutes. FINDINGS: Aronchick preparation quality scale 1 (1-5) Internal hemorrhoids, grade 1 No external prolapsed hemorrhoids. No arteriovenous malformations. No adenomatous polyps. No focal colitis. RECOMMENDATIONS: Lower endoscopy in 10 years, 2031 Plan - Discharge Summary Discharge Rx Participant: No New Discharge Prescriptions: Continue oxyCODONE-APAP 7.5-325MG [Percocet 7.5-325 mg] 1 tab PO BID Propranolol [Inderal] 80 mg PO DAILY Albuterol Sulfate [Proair Hfa] 1 - 2 puff INHALATION Q6HR PRN #1 inhaler PRN Reason: Shortness Of Breath Or Wheezing tiZANidine [Zanaflex] 4 mg PO Q8HR PRN PRN Reason: Pain buPROPion [Wellbutrin] 75 mg PO BID Oxybutynin Chloride [Ditropan] 5 mg PO BID Furosemide [Lasix] 20 mg PO QAM amLODIPine [Norvasc] 5 mg PO DAILY Discharge Medication List oxyCODONE-APAP 7.5-325MG [Percocet 7.5-325 mg] 1 tab PO BID 04/13/14 [History] Albuterol Sulfate [Proair Hfa] 1 - 2 puff INHALATION Q6HR PRN #1 inhaler 08/21/15 [Rx] Propranolol [Inderal] 80 mg PO DAILY 08/21/15 [History] Furosemide [Lasix] 20 mg PO QAM 07/16/19 [History] Oxybutynin Chloride [Ditropan] 5 mg PO BID 07/16/19 [History] buPROPion [Wellbutrin] 75 mg PO BID 07/16/19 [History] tiZANidine [Zanaflex] 4 mg PO Q8HR PRN 07/16/19 [History] amLODIPine [Norvasc] 5 mg PO DAILY 05/15/22 [History] Follow up Appointment(s)/Referral(s): Eliza Sharma MD [STAFF PHYSICIAN] - As Needed Patient Instructions/Handouts: *Surgery [facility] - (Anesthesia) Endoscopy Discharge Instructions, Diverticulosis Diet (GEN), Diverticulosis (DC) Activity/Diet/Wound Care/Special Instructions: Repeat colonoscopy in 10 years2031 Discharge Disposition: HOME SELF-CARE
[2022-05-16 08:36] VITALS: BP 147/90; PULSE 87
== END 2022-05-16 08:58 | disposition home or self-care (01) ==
LOC: ORWHC2ENDO 07:20
PROVIDERS: ATTEND Surgery Plastic and Reconstructive Surgery
DX: Z12.11 Encounter for screening for malignant neoplasm of colon (principal); K57.30 Diverticulosis of large intestine without perforation or abscess without bleeding; K64.0 First degree hemorrhoids; I10 Essential (primary) hypertension; R29.90 Unspecified symptoms and signs involving the nervous system; G43.909 Migraine, unspecified, not intractable, without status migrainosus; Z90.49 Acquired absence of other specified parts of digestive tract; Z87.891 Personal history of nicotine dependence; Z82.49 Family history of ischemic heart disease and other diseases of the circulatory system; Z79.899 Other long term (current) drug therapy; F41.9 Anxiety disorder, unspecified
CPT/HCPCS: 45378; J2704; J2001

== ENCOUNTER → 2022-07-25 | Outpatient (CLI) | payer OTHER ==
--- NOTE | 2022-07-25 11:32 | XR ---
EXAMINATION TYPE: XR shoulder limited RT DATE OF EXAM: 07/25/2022 10:43 AM INDICATION: Patient age:Female; 51 years old; Reason for study: Z98.890 OTHER SPECIFIED POSTPROCEDURAL STATES; COMPARISON: MR right shoulder 09/27/2019. TECHNIQUE: The right shoulder was examined in AP and lateral projections.. FINDINGS: Postsurgical changes from right reverse shoulder arthroplasty with glenoid and proximal humerus compo nents. Suggested scapular notching along the lower edge of the scapular glenoid. Hardware appears int act with appropriate alignment. No periprosthetic lucencies. No acute fractures or dislocation. Mild AC joint arthropathy. IMPRESSION: 1. Post surgical changes from reverse right shoulder arthroplasty with intact hardware and no disloc ation. 2. Suggested scapular notching along the lower edge of the scapular glenoid.
== END | disposition home or self-care (01) ==
LOC: RADXRMAIN 09:58
PROVIDERS: ATTEND Orthopaedic Surgery Sports Medicine
DX: Z98.890 Other specified postprocedural states (principal)

== ENCOUNTER → 2022-11-11 | Outpatient (CLI) | payer OTHER ==
--- NOTE | 2022-11-11 14:42 | MM ---
Reason for Exam: Follow-up at short interval from prior study. Last screening mammogram was performed 6 month(s) ago. Patient History: Menarche at age 9. First Full-Term at age 14. Hysterectomy at age 33. 09/07/2019, Benign Core Biopsy on the left side. Benign Core Biopsy. 09/07/2019, Benign Core Biopsy on the left side. 07/19/2019, Benign Core Biopsy on the left side. 07/19/2019, Benign Core Biopsy on the left side. Risk Values: Araceli 5 year model risk: 1.2%. NCI Lifetime model risk: 10.2%. Prior Study Comparison: 06/24/2019 Bilateral Diagnostic Mammogram, [facility]. 07/19/2019 Left Diagnostic Mammogram, [facility]. 05/10/2022 Bilateral MG 3D screening mammo w/cad, [facility]. Tissue Density: Left: The breast tissue is heterogeneously dense. This may lower the sensitivity of mammography. Findings: Analyzed By CAD. Persistent distortion and surgical clips in the left breast upper outer aspect. A 2.2 cm focal asymmetry along the anterior aspect of the clips is slightly more prominent from recent mammogram seen best on the MLO slice 30. Stable benign-appearing left axillary lymph nodes. Overall Assessment: Incomplete: need additional imaging evaluation, BI-RAD 0 Management: Diagnostic Breast Ultrasound of the left breast. Targeted ultrasound evaluation of new area of concern left breast. Electronically signed and approved by: Rigo Campos M.D.
--- NOTE | 2022-11-12 08:00 | USB ---
Reason for Exam: Additional evaluation requested from prior study. Patient History: Menarche at age 9. First Full-Term at age 14. Hysterectomy at age 33. 09/07/2019, Benign Core Biopsy on the left side. Benign Core Biopsy. 09/07/2019, Benign Core Biopsy on the left side. 07/19/2019, Benign Core Biopsy on the left side. 07/19/2019, Benign Core Biopsy on the left side. Risk Values: Araceli 5 year model risk: 1.2%. NCI Lifetime model risk: 10.2%. Technique: Method: Targeted. Prior Study Comparison: 06/24/2019 Bilateral Diagnostic Mammogram, [facility]. 07/19/2019 Left Diagnostic Mammogram, [facility]. 05/10/2022 Bilateral MG 3D screening mammo w/cad, [facility]. Findings: The upper outer quadrant of the left breast, the axilla of the left breast and the retroareolar of the left breast were scanned. Targeted ultrasound shows oval 1.1 x 0.8 x 1.5 cm somewhat ill-defined heterogeneous slightly hypoechoic avascular area favoring scar tissue. No additional solid or cystic mass or fluid collection is seen. Overall Assessment: Probably benign, BI-RAD 3 Management: Diagnostic Breast Ultrasound of the left breast in 6 months. Diagnostic Mammogram of both breasts in 6 months. A precautionary repeat ultrasound left breast 6 months. Patient due for bilateral breast mammogram in 6 months. Results were given to the patient verbally at the time of exam. Electronically signed and approved by: Rigo Campos M.D.
== END | disposition home or self-care (01) ==
LOC: RADMAMWWP 14:10
PROVIDERS: ATTEND Family Medicine
DX: R92.8 Other abnormal and inconclusive findings on diagnostic imaging of breast (principal)
CPT/HCPCS: 77065; 76642; G0279; 77061

== ENCOUNTER → 2023-03-10 | Outpatient (CLI) | payer OTHER | END | disposition home or self-care (01) | LOC: LABWHC1 13:31 | PROVIDERS: ATTEND Family Medicine | DX: Z53.9 Procedure and treatment not carried out, unspecified reason (principal) ==

== ENCOUNTER → 2023-03-13 | Outpatient (CLI) | payer OTHER ==
[2023-03-13 21:31] LABS: Basophils # (A) 0.01 X 10*3/uL (0.00-0.10); Basophils % (A) 0.2 %; Eosinophils # (A) 0.21 X 10*3/uL (0.04-0.35); Eosinophils % (A) 3.3 %; HCT 43.2 % (37.2-46.3); HGB 13.5 g/dL (12.0-15.0); Immature Grans, Automated 0.6 %; Lymphocytes # (A) 1.99 X 10*3/uL (0.90-5.00); Lymphocytes % (A) 31.5 %; MCH 29.1 pg (27.0-32.0); MCHC 31.3 g/dL (32.0-37.0); MCV 93.1 fL (80.0-97.0); Mean Platelet Volume 10.9 fL (9.5-12.2); Monocytes # (A) 0.54 X 10*3/uL (0.20-1.00); Monocytes % (A) 8.5 %; NRBC Per 100 WBC 0 /100 WBCS (0.0-0.0); Neutrophils # (A) 3.53 X 10*3/uL (1.80-7.70); Neutrophils % (A) 55.9 %; Platelet Count 304 X 10*3/uL (140-440); RBC 4.64 X 10*6/uL (4.10-5.20); RDW 13.7 % (11.5-14.5); WBC 6.32 X 10*3/uL (4.50-10.00)
[2023-03-13 21:55] LABS: Erythrocyte Sedimentation Rate 39 mm/Hr (0-30)
[2023-03-13 21:58] LABS: Rheumatoid Factor, Qnt <10 IU/mL (0-15)
[2023-03-13 22:04] LABS: Hepatitis C IgG Antibody Nonreactive (Nonreactive)
[2023-03-13 22:17] LABS: ALT 23 U/L (8-44); AST 26 U/L (13-35); African American GFR (CKD) 85.4 (60.0-200.0); Albumin 4.2 g/dL (3.8-4.9); Albumin/Globulin Ratio 1.31 (1.60-3.17); Alkaline Phosphatase 116 U/L (41-126); BUN/Creat Ratio 11.14 Ratio (12.00-20.00); C Reactive Protein <0.30 mg/dL (0.00-0.80); Calcium 9.7 mg/dL (8.7-10.3); Carbon Dioxide 25.9 mmol/L (20.0-27.5); Chloride 105 mmol/L (96-109); Chol/HDL Ratio 2.99 Ratio; Globulin 3.2 g/dL (1.6-3.3); Glucose 101 mg/dL (70-110); LDL Cholesterol,Calculated 96.1 mg/dL (0.0-131.0); Non-African American GFR(CKD) 73.7 (60.0-200.0); Potassium 4.1 mmol/L (3.5-5.5); Sodium 141 mmol/L (135-145); Total Protein 7.4 g/dL (6.2-8.2); VLDL Calculation 15.76 mg/dL (5.00-40.00)
[2023-03-13 23:44] LABS: HIV 2 AB Non-Reactive (Non-Reactive); HIV AB P24 Non-Reactive (Non-Reactive); HIV P24 AG Non-Reactive (Non-Reactive)
== END | disposition home or self-care (01) ==
LOC: LABWHC1 12:54
PROVIDERS: ATTEND Family Medicine
DX: Z11.4 Encounter for screening for human immunodeficiency virus [HIV] (principal); Z11.59 Encounter for screening for other viral diseases; M19.90 Unspecified osteoarthritis, unspecified site; E78.5 Hyperlipidemia, unspecified
CPT/HCPCS: 36415; 80053; 80061; 84439; 84443; 85025; 85652; 86038; 86140; 86431; 86803; 87390

== ENCOUNTER → 2023-10-07 | Outpatient (CLI) | payer OTHER ==
--- NOTE | 2023-10-07 17:50 | XR ---
EXAMINATION TYPE: XR shoulder complete 3 views RT DATE OF EXAM: 10/07/2023 Comparison: 07/25/2022 Clinical History: 52-year-old female M25.511 RIGHT SHOULDER PAIN Findings: Post surgical change of reverse right total shoulder arthroplasty. The femoral stem component appears well seated. Alignment appears appropriate. Suspected chronic loose body/bone fragment measuring 1.3 x 0.2 cm located posteriorly and inferiorly at the shoulder joint. No acute fracture, subluxation, d islocation seen. Impression: Status post reverse right shoulder arthroplasty. Suspect a chronic bone fragment posteriorly and infe riorly at the right shoulder. This may have been present on the axillary view of 07/25/2022. Otherwise , no evident complication.
== END | disposition home or self-care (01) ==
LOC: RADXRMAIN 14:11
PROVIDERS: ATTEND Family Medicine
DX: M25.511 Pain in right shoulder (principal); Z96.611 Presence of right artificial shoulder joint

== ENCOUNTER → 2023-11-25 | Outpatient (CLI) | payer OTHER ==
--- NOTE | 2023-11-25 14:41 | USB ---
Reason for Exam: Follow-up at short interval from prior study. Patient History: Menarche at age 9. First Full-Term at age 14. Hysterectomy at age 33. 09/07/2019, Benign Core Biopsy on the left side. Benign Core Biopsy. 09/07/2019, Benign Core Biopsy on the left side. 07/19/2019, Benign Core Biopsy on the left side. 07/19/2019, Benign Core Biopsy on the left side. Risk Values: Araceli 5 year model risk: 1.3%. NCI Lifetime model risk: 10.0%. Technique: Method: Targeted. Prior Study Comparison: 07/19/2019 Left Diagnostic Mammogram, [facility]. 05/10/2022 Bilateral MG 3D screening mammo w/cad, [facility]. 11/11/2022 Left MG 3D diag mammo w/cad , [facility]. Findings: The upper outer quadrant of the left breast, the axilla of the left breast and the retroareolar of the left breast were scanned. Area of decreased echogenicity seen previously at the site of prior biopsy right 2:00 position 5 cm from the nipple persists although is much smaller in size and measures 1 cm x 5 mm versus 1.1 cm x 0.8 cm seen previously. Follow-up in one year is advised. Overall Assessment: Probably benign, BI-RAD 3 Management: Diagnostic Breast Ultrasound of the right breast in 1 year. A clinical breast exam by your physician is recommended on an annual basis and results should be correlated with mammographic findings. This exam should not preclude additional follow-up of suspicious palpable abnormalities. Results were given to the patient verbally at the time of exam. Electronically signed and approved by: John Garzon M.D. Radiologis
--- NOTE | 2023-12-01 14:16 | MM ---
Reason for Exam: Follow-up at short interval from prior study. Last mammogram was performed 1 year(s) and 7 month(s) ago. Patient History: Menarche at age 9. First Full-Term at age 14. Hysterectomy at age 33. 09/07/2019, Benign Core Biopsy on the left side. Benign Core Biopsy. 09/07/2019, Benign Core Biopsy on the left side. 07/19/2019, Benign Core Biopsy on the left side. 07/19/2019, Benign Core Biopsy on the left side. Risk Values: Araceli 5 year model risk: 1.3%. NCI Lifetime model risk: 10.0%. Tissue Density: The breast tissue is heterogeneously dense. This may lower the sensitivity of mammography. Findings: Analyzed By CAD. Persistent postoperative distortion upper outer left breast. No new masses or new areas of distortion. No suspicious calcifications. Ultrasound recommended. Overall Assessment: Incomplete: need additional imaging evaluation, BI-RAD 0 Management: Diagnostic Breast Ultrasound of the left breast. . Results were given to the patient verbally at the time of exam. Patient should continue monthly self-breast exams. A clinical breast exam by your physician is recommended on an annual basis. This exam should not preclude additional follow-up of suspicious palpable abnormalities. Note on Araceli scores and lifetime risk: 1. A Araceli score greater than 3% is considered moderate risk. If this is the case, consider specialist referral to assess eligibility for a risk reducing agent. 2. If overall lifetime risk for the development of breast cancer is 20% or higher, the patient may qualify for future screening with alternating mammogram and breast MRI. Electronically signed and approved by: John Garzon M.D. Radiologis
== END | disposition home or self-care (01) ==
LOC: RADMAMWWP 13:53
PROVIDERS: ATTEND Family Medicine
DX: R92.333 Mammographic heterogeneous density, bilateral breasts (principal)
CPT/HCPCS: 77066; 76642; G0279; 77062

== ENCOUNTER → 2024-10-06 | Outpatient (CLI) | payer OTHER ==
[2024-10-06 19:16] LABS: ALT 24 U/L (8-44); AST 25 U/L (13-35); Albumin 4.2 g/dL (3.8-4.9); Albumin/Globulin Ratio 1.35 Ratio (1.60-3.17); Alkaline Phosphatase 118 U/L (41-126); Blood Urea Nitrogen 13.5 mg/dL (9.0-27.0); Calcium 9.6 mg/dL (8.7-10.3); Carbon Dioxide 24.3 mmol/L (21.6-31.8); Chloride 108 mmol/L (96-109); Chol/HDL Ratio 2.84 Ratio; Globulin 3.1 g/dL (1.6-3.3); Glucose 85 mg/dL (70-110); LDL Cholesterol,Calculated 100.8 mg/dL (0.0-131.0); Potassium 4.3 mmol/L (3.5-5.5); Sodium 142 mmol/L (135-145); T4, Free (Free Thyroxine) 1.27 ng/dL (0.80-1.80); Total Bilirubin 0.8 mg/dL (0.3-1.2); Total Protein 7.3 g/dL (6.2-8.2); VLDL Calculation 12.54 mg/dL (5.00-40.00)
[2024-10-06 19:55] LABS: Basophils # (A) 0.03 X 10*3/uL (0.00-0.10); Basophils % (A) 0.3 %; Eosinophils # (A) 0.19 X 10*3/uL (0.04-0.35); Eosinophils % (A) 1.7 %; HCT 42.9 % (37.2-46.3); HGB 13.3 g/dL (12.0-15.0); Lymphocytes % (A) 23.3 %; MCH 29.4 pg (27.0-32.0); MCV 94.9 FL (80.0-97.0); Mean Platelet Volume 10.6 FL (9.5-12.2); Monocytes # (A) 0.83 X 10*3/uL (0.20-1.00); Monocytes % (A) 7.4 %; NRBC Per 100 WBC 0 X 10*3/uL (0.00-0.01); Neutrophils # (A) 7.47 X 10*3/uL (1.80-7.70); Neutrophils % (A) 66.9 %; Platelet Count 301 X 10*3/uL (140-440); RBC 4.52 X 10*6/uL (4.10-5.20); RDW 13.6 % (11.5-14.5); WBC 11.16 X 10*3/uL (4.50-10.00)
== END | disposition home or self-care (01) ==
LOC: LABWHC1 12:39
PROVIDERS: ATTEND Family Medicine
DX: E78.5 Hyperlipidemia, unspecified (principal); E05.90 Thyrotoxicosis, unspecified without thyrotoxic crisis or storm; E55.9 Vitamin D deficiency, unspecified
CPT/HCPCS: 36415; 80053; 80061; 82306; 84439; 84443; 84481; 85025

== ENCOUNTER → 2025-05-05 | Outpatient (CLI) | payer OTHER ==
--- NOTE | 2025-05-05 14:40 | XR ---
EXAMINATION TYPE: XR shoulder complete RT DATE OF EXAM: 05/05/2025 11:17 AM COMPARISON: None CLINICAL INDICATION: Female, 54 years old with history of M25.511 Pain right shoulder; [facility], pain TECHNIQUE: 3 views FINDINGS: Moderate degenerative change at the AC joint with prominent inferior spurring. There is a reverse tot al shoulder arthroplasty present. The last year component is noted to be positioned high within the g lenoid so that the humeral stem component may contact the inferior glenoid. Refer to the Grashey view . No periprosthetic fracture seen. Some possible early periprosthetic lucencies about the humeral cup component. IMPRESSION: 1. High positioning of the glenosphere component may allow for the humeral component to contact the i nferior glenoid. Refer to the Grashey view. No liane scapular notching is seen however. 2. Small areas of lucency around the humeral stem component. Follow-up recommended to exclude early l oosening. 3. Moderate AC joint OA. [facility], , 05/05/2025 2:38 PM
== END | disposition home or self-care (01) ==
LOC: RADXRMAIN 10:40
PROVIDERS: ATTEND Family Medicine
DX: M19.011 Primary osteoarthritis, right shoulder (principal)